=== PATIENT | male | born 1995 | race American Indian/Alaskan Native ===

== ENCOUNTER 2018-10-10 21:52 | Emergency (ER) | payer OTHER ==
[2018-10-10] MEDS ORDERED: TYLENOL ONE (22:10)
--- NOTE | 2018-10-10 22:10 | Emergency Department Report ---
Blank Doc - Documentation Documentation: This is a 23-year-old male that presents with sore throat. This initial assessment/diagnostic orders/clinical plan/treatment(s) is/are subject to change based on patient's health status, clinical progression and re- assessment by fellow clinical providers in the ED. Further treatment and workup at subsequent clinical providers discretion. Patient/guardians urged not to elope from the ED as their condition may be serious if not clinically assessed and managed. Initial orders include: 1- Patient sent to [facility] for further evaluation and treatment 2- strep swab sent
[2018-10-10 22:11] VITALS: BP 135/88
[2018-10-10] MEDS ORDERED: TYLENOL PO ONE (22:11)
--- NOTE | 2018-10-10 23:21 | Emergency Department Report ---
ED ENT HPI - General Chief complaint: Sore Throat Stated complaint: RT EAR/THROAT PAIN Time Seen by Provider: 10/10/18 22:08 Source: patient Mode of arrival: Ambulatory Limitations: No Limitations - History of Present Illness Initial comments: 23-year-old -[place] male presents to the emergency room for right ear pain and sore throat that started last night. Patient reports he has felt warm but does not have a thermometer to check for fever. Patient reports the pain is worse with swallowing he has taken no pain medication for his discomfort. Patient also admits to right ear pain with no alleviating or aggravating factors. Patient has no past medical history no known drug allergies and currently takes no medications on a daily basis. MD complaint: tooth pain, ear pain -: Last night Location: R ear, throat Severity: severe Severity scale (0 -10): 7 Quality: stabbing, aching, sharp Consistency: constant Improves with: none Worsens with: swallowing Associated Symptoms: pain with swallowing, sore throat. denies: fever, cough, gum swelling, toothache - Related Data Previous Rx's Medication Instructions Recorded Last Taken Type Amoxicillin [Amoxicillin TAB] 875 mg PO BID #20 tablet 10/10/18 Unknown Rx Ibuprofen [Motrin 600 MG tab] 600 mg PO Q8H PRN #30 tablet 10/10/18 Unknown Rx Allergies Allergy/AdvReac Type Severity Reaction Status Date / Time No Known Allergies Allergy Unverified 10/10/18 22:11 ED Dental HPI - General Chief complaint: Sore Throat Stated complaint: RT EAR/THROAT PAIN Time Seen by Provider: 10/10/18 22:08 Source: patient Mode of arrival: Ambulatory Limitations: No Limitations - Related Data Previous Rx's Medication Instructions Recorded Last Taken Type Amoxicillin [Amoxicillin TAB] 875 mg PO BID #20 tablet 10/10/18 Unknown Rx Ibuprofen [Motrin 600 MG tab] 600 mg PO Q8H PRN #30 tablet 10/10/18 Unknown Rx Allergies Allergy/AdvReac Type Severity Reaction Status Date / Time No Known Allergies Allergy Unverified 10/10/18 22:11 ED Review of Systems ROS: Stated complaint: RT EAR/THROAT PAIN Other details as noted in HPI Comment: All other systems reviewed and negative Constitutional: denies: chills, fever ENT: ear pain, throat pain ED Past Medical Hx - Past Medical History Previous Medical History?: No - Surgical History Past Surgical History?: No - Social History Smoking Status: Never Smoker Substance Use Type: Alcohol - Medications Home Medications: Home Medications Medication Instructions Recorded Confirmed Last Taken Type Amoxicillin [Amoxicillin TAB] 875 mg PO BID #20 tablet 10/10/18 Unknown Rx Ibuprofen [Motrin 600 MG tab] 600 mg PO Q8H PRN #30 tablet 10/10/18 Unknown Rx ED Physical Exam - General Limitations: No Limitations General appearance: alert, in no apparent distress - Head Head exam: Present: atraumatic, normocephalic - Expanded ENT Exam Expanded Throat exam: Positive: tonsillar erythema, tonsillomegaly, tonsillar exudate - Neck Neck exam: Present: tenderness, full ROM, lymphadenopathy - Respiratory Respiratory exam: Present: normal lung sounds bilaterally. Absent: respiratory distress - Cardiovascular Cardiovascular Exam: Present: tachycardia - Neurological Exam Neurological exam: Present: alert, oriented X3 - Psychiatric Psychiatric exam: Present: normal affect, normal mood - Skin Skin exam: Present: warm, dry, intact, normal color. Absent: rash ED Course Vital Signs 10/10/18 10/10/18 10/10/18 22:09 22:12 23:35 Temperature 99.5 F 98.6 F Pulse Rate 115 H Respiratory 20 20 Rate Blood Pressure 135/88 O2 Sat by Pulse 100 Oximetry Critical care attestation.: If time is entered above; I have spent that time in minutes in the direct care of this critically ill patient, excluding procedure time. ED Disposition Clinical Impression: Strep pharyngitis Disposition: DC-01 TO HOME OR SELFCARE Is pt being admited?: No Does the pt Need Aspirin: No Condition: Stable Instructions: Strep Throat (ED) Additional Instructions: These complete antibiotics as prescribed. Pain medication as needed. Follow-up with primary care provider if symptoms persist or gets worse. Prescriptions: Amoxicillin [Amoxicillin TAB] 875 mg PO BID #20 tablet Ibuprofen [Motrin 600 MG tab] 600 mg PO Q8H PRN #30 tablet PRN Reason: Pain Forms: Work/School Release Form(ED)
== END 2018-10-11 00:06 | disposition home or self-care (01) ==
LOC: ED 21:52
DX: J02.0 Streptococcal pharyngitis (principal)
CPT/HCPCS: 87116; 87430